=== PATIENT | male | born 1975 ===

== ENCOUNTER 2017-07-18 19:35 | Emergency (ER) | payer OTHER ==
[2017-07-18 21:55] LABS: Basophils % (Auto) 0.2 % (0.0-1.8); Eosinophils # (Auto) 0.5 K/mm3 (0.0-0.4); Eosinophils % (Auto) 9.1 % (0.0-4.3); Hemoglobin 13.4 gm/dl (11.8-15.2); Lymphocytes # (Auto) 1.6 K/mm3 (1.2-5.4); Lymphocytes % (Auto) 28.2 % (13.4-35.0); Mean Corpuscular HGB Conc 32 % (32-34); Mean Corpuscular Volume 80 fl (84-94); Monocytes # (Auto) 0.7 K/mm3 (0.0-0.8); Monocytes % (Auto) 12.1 % (0.0-7.3); Platelet Count 214 K/mm3 (140-440); Red Blood Count 5.24 M/mm3 (3.65-5.03); Red Cell Distribution Width 15.4 % (13.2-15.2)
[2017-07-18 22:07] LABS: Mean Corpuscular Hemoglobin 26 pg (28-32)
[2017-07-18 22:09] LABS: BUN/Creatinine Ratio 15; Blood Urea Nitrogen 12 mg/dL (9-20); Calcium 8.7 mg/dL (8.4-10.2); Hemolysis Index 9
[2017-07-18 23:29] LABS: Bilirubin,Urine NEG (Negative); Blood,Urine NEG (Negative); Color,Urine Yellow (Yellow); Mucus,Urine FEW /HPF; Protein,Urine <15 mg/dL mg/dL (Negative); WBC,Urine < 1.0 /HPF (0.0-6.0)
[2017-07-19] MEDS ORDERED: ATROVENT IH ONE (03:49)
[2017-07-19] MEDS ORDERED: PROVENTIL IH ONE (03:49)
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
[2017-07-19 05:18] VITALS: BP 119/74
== END 2017-07-19 05:26 | disposition home or self-care (01) ==
LOC: ED 19:35
DX: E86.0 Dehydration (principal)
CPT/HCPCS: 36415; 80048; 81001; 85025; 93005; 93010; 99283